=== PATIENT | female | born 1990 | race Hispanic/Latino ===

== ENCOUNTER → 2018-08-30 | Outpatient (CLI) | payer OTHER ==
[~2018-08-30] MED LIST: PNV1TABL77 PO
== END | disposition home or self-care (01) ==
LOC: RAH 14:41
PROVIDERS: ATTEND Family Medicine
DX: N60.02 Solitary cyst of left breast (principal); N60.01 Solitary cyst of right breast
CPT/HCPCS: 76641

== ENCOUNTER 2023-04-07 18:32 | Emergency (ER) | payer BC, OTHER ==
[~2023-04-07] VITALS: Ht 152.4 cm; Wt 63.5 kg
[2023-04-07] MEDS ORDERED: AZITHROMYCIN 250 MG TABLET PO ONE (20:30)
[2023-04-07] MEDS ORDERED: CEFTRIAXONE 500MG VIAL IM SCH (20:30)
[2023-04-07] MEDS ORDERED: FLUCONAZOLE 100 MG TAB PO ONE (20:30)
[2023-04-07 20:38] LABS: APPEARANCE,URINE CLEAR (CLEAR); COLOR,URINE COLORLESS (YELLOW)
[2023-04-07 20:39] LABS: BILIRUBIN,URINE NEGATIVE (NEGATIVE); GLUCOSE, URINE (UA) NEGATIVE (NEGATIVE); KETONES,URINE NEGATIVE (NEGATIVE); LEUKOCYTE ESTERASE ,URINE 250 Leu/uL (NEGATIVE); NITRATE,URINE NEGATIVE (NEGATIVE); OCCULT BLOOD,URINE NEGATIVE (NEGATIVE); PROTEIN,URINE NEGATIVE (NEGATIVE); UROBILINOGEN,URINE 0.2 mg/dL (0.2-1.0)
[2023-04-07 20:40] LABS: ADD UA MICROSCOPIC YES
[2023-04-07 20:42] LABS: BACTERIA,URINE RARE /HPF (None Seen); SQUAMOUS EPITHELIAL CELL,UR FEW /HPF (0-2)
[2023-04-07 20:43] VITALS: BP 132/65; PULSE 78; RESP 16; O2SAT 98
[2023-04-07] MEDS ORDERED: NITR100C4 PO (20:43)
== END 2023-04-07 20:54 | disposition home or self-care (01) ==
LOC: EDH 18:32
DX: B37.9 Candidiasis, unspecified (principal); N39.0 Urinary tract infection, site not specified; Z20.2 Contact with and (suspected) exposure to infections with a predominantly sexual mode of transmission
CPT/HCPCS: 99283; 87088; 87797; 87486; 81001; 96372; J0696